=== PATIENT | male | born 1955 | race Caucasian/White ===

== ENCOUNTER 2024-01-01 04:59 | Emergency (ER) | payer MEDICARE, SELFPAY ==
[2024-01-01 05:05] VITALS: BP 190/93; PULSE 64; RESP 17; TEMP 36.4; O2SAT 99; BMI 22.9
--- NOTE | 2024-01-01 05:11 | DI.RAD.S_ITS ---
PROCEDURE: XR FINGER LT MIN 2V INDICATIONS: slammed in door TECHNIQUE: AP hand, 2 views of the 3rd finger(s) acquired. COMPARISON: None. FINDINGS: Bones: No fractures or dislocations can be seen of the 3rd finger or elsewhere. No suspicious bony lesions. Age-appropriate bony degenerative changes are seen. Soft tissues: No suspicious soft tissue calcifications. IMPRESSION: No acute bony abnormality is seen on these plain films. Note: No significant discrepancy from the preliminary report. Dictated by: Kayode Jensen M.D. on 01/01/2024 at 8:04 Approved by: Kayode Jensen M.D. on 01/01/2024 at 8:04
--- NOTE | 2024-01-01 08:03 | ED.WOUNDLAC ---
HPI - Wound/Laceration General Chief Complaint: Wound/Laceration Stated Complaint: lt middle finger cut Time Seen by Provider: 01/01/24 07:02 Source: patient Mode of arrival: Ambulatory History of Present Illness HPI narrative: 68-year-old gentleman on no medications, rarely sees physicians, had a barn door close on his left middle finger with a lali of wind and he has large flap-like laceration on the palmar surface proximal phalanx middle finger. He is neurovascularly intact. There is some minor abrasions on the dorsal surface will not need to be repair. He has no other complaint Related Data Allergies Allergy/AdvReac Type Severity Reaction Status Date / Time No Known Drug Allergies Allergy Verified 01/01/24 05:10 Patient History Social History Smoking Status: Current some day smoker Smoking Status: Current some day smoker alcohol intake frequency: 0-2 drinks per day Substance Use Type: does not use Exam Initial Vital Signs Initial Vital Signs: Vital Signs Temperature 97.5 F L 01/01/24 05:05 Pulse Rate 64 01/01/24 05:05 Respiratory Rate 17 01/01/24 05:05 Blood Pressure 190/93 H 01/01/24 05:05 Pulse Oximetry 99 01/01/24 05:05 Oxygen Delivery Method Room Air 01/01/24 05:05 General: Alert appropriate in no acute distress Respiratory: Able to speak in full sentences, no obvious respiratory distress Skin: No obvious rashes, warm and dry Neurologic: Grossly intact no obvious asymmetries or abnormalities Psych: appropriate insight and affect, cooperative Extremity: Middle finger with large flap like lesion on the palmar surface of the phalanx a does not appear to involve tendons good strength with flexion of the finger, complete sensation to the tip of the finger. No nail involvement. When explored under anesthesia it does appear to have some exposed bone. Procedures Laceration Repair Left middle finger: Time of procedure: 08:36 Site: hand Side (If applicable): left Size (cm): 4 Description: flap and irregular Depth: involves muscle layer Local Anesthetic: lidocaine 1% Amount of anesthesia used (mL): 4 (Digital block) Pre-repair: wound explored, irrigated extensively and deep structures intact (Bone is visible at the base of the wound. There was quite a bit of contusion and swelling) Skin layer closed with: nylon Skin layer suture size: 4-0 Number of sutures: 3 Technique: simple, interrupted Subcutaneous layer closed with: vicryl Subcutaneous layer suture size: 4-0 Number of sutures: 3 Technique: other (Horizontal mattress through the flap to reapproximate medial portions of the wound and close space) Course Orders Ordered: ED Orders 01/01/24 05:11 XR finger LT min 2V Stat Vital Signs Vital signs: Vital Signs - 8 hr 01/01/24 05:05 Temperature 97.5 F L Pulse Rate 64 Respiratory Rate 17 Blood Pressure 190/93 H Pulse Oximetry 99 Oxygen Delivery Method Room Air MDM - Wound/Laceration MDM Narrative Medical decision making narrative: CC: Left middle finger laceration Complicating co-morbidities: Owns a farm, works with horses, cleaning stools etc. Data collected from: patient Social determinants of health that may influence the patients condition: No primary care physician Differential considered: Crush injury, underlying fracture, tendon injury, simple laceration Exam documented above, pertinent findings include: Deep flap laceration with bone visible the deepest portion of the wound. Does not appear to involve tendons. He is neurovascularly intact with no nail involvement. Imaging studies independently reviewed: X-ray does not show any underlying fractures Treatments: Laceration repair Discussion: 68-year-old gentleman with deep flap laceration to left palmar surface proximal phalanx middle finger. Wound came together nicely despite the edema and hematoma secondary to the crush portion of the injury. There was no nail involvement does not appear to be any tendon involvement, no underlying fracture. His last tetanus shot was a year ago. Because of the wound is deep enough and bone is exposed I am going to have him complete 7 days of Keflex. Clearly reviewed signs of superficial as well as deep hand infections and reasons to return to emergency department recommended sutures are out on or about January 10. Questions are answered he is safe for discharge Discharge Plan Departure Patient Disposition: Home Clinical Impression: Laceration Instructions: DI for Laceration Repair Activity Restrictions/Additional Instructions: Thank you for coming in today Was a very deep cut it did actually go all the way to the bone. The x-ray does not show any fractures underneath I used 3 deep sutures to make sure that the middle and muscle portion of the wound was closed and will heal nicely. There are 3 superficial sutures to make sure that the skin edges were approximated It is deep enough that you are at risk for infection. I have given you a prescription for Keflex, 3 times a day for 7 days. Please do complete this course. If you notice increasing pain, redness pain deep into the palm of your hand or up into your forearm that could be a sign of a deeper infection and needs further evaluation. Using 400 mg of ibuprofen (2 [id number] pills) and 1 Tylenol every 6 hours can be very helpful in controlling pain. The stitches will need to be removed on or about January 10. You can return to the ER, be seen by urgent care or in primary care office for removal. If you find that you are getting worse or develop any new symptoms, please feel free to return to the emergency department for further evaluation. Stand Alone Forms: Patient Portal/API
[2024-01-01] MEDS: BACITRACIN OINT 0.9 GM PCKT 1 APPLIC TOP (08:41)
== END 2024-01-01 08:48 | disposition home or self-care (01) ==
PROVIDERS: Emergency Provider Emergency Medicine
DX: S61.213A Laceration without foreign body of left middle finger without damage to nail, initial encounter (principal); W23.0XXA Caught, crushed, jammed, or pinched between moving objects, initial encounter
CPT/HCPCS: 12002; 73140; 99282; 99283